=== PATIENT | male | born 1985 | race Caucasian/White ===

== ENCOUNTER → 2019-12-09 09:26 | Outpatient (BNVA) | payer OTHER, SELFPAY | PROVIDERS: Visit Provider Registered Nurse | DX: Z02.1 Encounter for pre-employment examination (principal) | CPT/HCPCS: 80305 ==

== ENCOUNTER 2019-12-18 10:00 | Emergency (ER) | payer OTHER, SELFPAY ==
[2019-12-18 10:03] VITALS: BP 136/93; PULSE 71; RESP 16; TEMP 36.7; O2SAT 100; BMI 22.8
--- NOTE | 2019-12-18 10:14 | ED_ITS ---
Entered by Carole Yan, acting as scribe for Andrew Adam DO Dec 18, 2019 10:00 HPI - Abdominal Pain General: Chief Complaint: Abdominal Pain Stated Complaint: LOWER ABD PAIN Time Seen by Provider: 12/18/19 10:19 Source: patient Mode of arrival: ambulatory Limitations: no limitations History of Present Illness: HPI narrative: 34 yo male presents with Right groin pain. pt states this started today. pt states movement makes this worse. pt is concerned that he has a hernia. pt denies any other symptoms at this time. MD elicited complaint: other (knot on R groin) Pertinent past history: none Onset (ago): day(s) (today) Pain Consistency: constant Location: Groin (right sided) Severity: moderate Quality: sharp Radiation: other (R testicle yesterday) Migration to: no migration Exacerbating factors: movement Relieving factors: nothing Associated Symptoms: Reports no associated symptoms; Denies bloating, chills, coffee ground emesis, constipation, diarrhea, dysuria, fever(s), hematochezia, hematemesis, melena, nausea and vomiting Review of Systems General: Reports: 10 or more systems reviewed and unremarkable except in HPI and below Const: Denies: fever, chills, body aches, change in appetite, fatigue or malaise ENMT: Denies: throat pain, ear pain, nasal discharge or nasal congestion Card: Denies: chest pain, edema, shortness of breath on exertion or shortness of breath when lying down Resp: Denies: shortness of breath, productive cough or non-productive cough GI: Denies: abdominal pain, nausea, vomiting, vomiting blood, coffee grounds in vomit, diarrhea, constipation, bloating, blood in stool or black tarry stool : Denies: flank pain, painful urination, urinary frequency or urinary urgency Skin/Breast: Denies: rash or itching PFSH ED PFSH: Social History Smoking and tobacco status: current every day smoker Physical Exam Const: COMMON NORMALS: no apparent distress GENERAL APPEARANCE: cooperative and comfortable ORIENTATION/CONSCIOUSNESS: Yes awake, Yes oriented to person, Yes oriented to place and Yes oriented to time HENMT: COMMON NORMALS: normocephalic, head/scalp atraumatic, hearing grossly normal bilaterally, external ears normal, EAC's normal, TM's normal bilaterally, nasal mucous membranes and turbinates normal, moist oral mucous membranes and oropharynx normal HEAD & SCALP: normocephalic and atraumatic NOSE: nasal mucous membranes and turbinates normal EXTERNAL EAR: Yes external ears normal EXTERNAL AUDITORY CANAL: EAC's normal TYMPANIC MEMBRANE: TM's normal bilaterally Eye: COMMON NORMALS: PERRL, EOMs intact bilaterally, conjunctivae normal and no scleral icterus CONJUNCTIVA: Yes conjunctivae normal PUPIL: Yes PERRL Neck/C-Spine: COMMON NORMALS: full ROM, no lymphadenopathy, supple and no JVD Resp: COMMON NORMALS: normal respiratory effort, no retractions, no use of accessory muscles and clear to auscultation bilaterally AUSCULTATION: clear to auscultation bilaterally Cardio: COMMON NORMALS: no JVD, regular rate, regular rhythm and no murmurs RATE: regular rate RHYTHM: regular rhythm GI: COMMON NORMALS: soft to palpation and no hepatosplenomegaly AUSCULTATION: Yes normoactive bowel sounds PALPATION: Yes soft, No tender, No guarding and Yes no hepatosplenomegaly : COMMON NORMALS: Yes no CVA tenderness, Yes external exam normal, Yes testes normal, Yes scrotum normal, Yes no scrotal swelling and Yes no hernias present BLADDER/KIDNEY EXAM: Yes no CVA tenderness MALE GROIN/PERINEUM EXAM: Yes hernia ( Loose external inguinal ring with no evidence of any abd) and Yes inguinal lymphadenopathy (Solitary subcentimeter nodule in the right inguinal region. Lymphadenopathy is superior) Back/Pelvis: COMMON NORMALS: no CVA tenderness Extremity: COMMON NORMALS: normal to inspection, normal capillary refill, no clubbing, cyanosis or edema, no calf tenderness and no pedal edema Neuro: SENSORIUM/ORIENTATION: Yes oriented to person, Yes oriented to place and Yes oriented to time Skin: NARRATIVE SKIN EXAM: Patient has a noninflamed pilonidal cyst is not fluctuant at the superior aspect of the gluteal cleft. There is no redness erythema no tenderness with palpation. There is some scarring appears it is previously drained. Chronic boggy thickening of this skin itself. Course ED course: Patient has no abnormalities on exam of the scrotum or testicle. The only other abnormality exam is documented above. Urine and white count are normal. This point discharge him home recommend ice heat as needed to the groin area rest. He could have a follow-up if the lymphadenopathy does not resolve. Probably more importance is the pilonidal cyst is not actively infected at this time and will take he needs to be on an antibiotic sounds like he drained it pretty much took care of it himself he does however need to see surgery will try to get him into see general surgery so he can get definitive care for it before it recurs. Vital Signs: Vital signs: Vital Signs Temperature 98.0 F 12/18/19 10:03 Pulse Rate 80 12/18/19 11:39 Respiratory Rate 17 12/18/19 11:39 Blood Pressure 126/89 12/18/19 11:39 Pulse Oximetry 99 12/18/19 11:39 MDM - Abdominal Pain Lab Data: Labs: Lab Results 12/18/19 12/18/19 12/18/19 Range/Units 10:19 10:19 10:25 WBC 9.4 (4.0-10.0) 10^3/ uL RBC 4.62 (4.1-5.3) 10^6/u L Hgb 15.4 (11.7-16.6) g/dL Hct 45.0 (42.0-52.0) % MCV 97.4 H (80-94) fL MCH 33.3 (28.0-34.0) pg MCHC 34.2 (30.0-36.0) g/dL RDW 11.9 L (12.1-15.1) % Plt Count 304 (130-400) 10^3/c mm MPV 9.1 (7.4-10.4) fL Neut % (Auto) 77.4 % Lymph % (Auto) 13.9 % Sawyer % (Auto) 6.5 % Eos % (Auto) 1.7 % Baso % (Auto) 0.3 % Neut # (Auto) 7.3 (1.8-7.7) 10^3/u L Lymph # (Auto) 1.3 (0.8-4.8) 10^3/u L Sawyer # (Auto) 0.6 (0.2-0.9) 10^3/u L Eos # (Auto) 0.2 (0.0-0.8) 10^3/u L Baso # (Auto) 0.0 (0.0-0.1) 10^3/u L Nucleated RBC % (a uto) 0 % Nucleated RBCs # 0.0 /100WBC Sodium 140 (136-145) mmol/L Potassium 4.4 (3.5-5.1) mmol/L Chloride 99 (98-107) mmol/L Carbon Dioxide 30 H (22-29) mmol/L Anion Gap 15.4 (5-19) BUN 9 (6-20) mg/dL Creatinine 0.9 (0.7-1.2) mg/dL GFR Calculation 96.0 (90-130) mL/min Glucose 128 H (65-115) mg/dL Calculated Osmolal ity 288 (285-295) mOsm/k g Calcium 10.3 (8.5-10.5) mg/dL Total Bilirubin 0.4 (0.15-1.2) mg/dL AST 23 (0-40) U/L ALT 20 (0-41) U/L Alkaline Phosphata se 83 (40-130) IU/L Total Protein 8.4 (6.6-8.7) g/dL Albumin 4.7 (3.5-5.2) g/dL Globulin 3.7 (1.3-4.6) g/dL Urine Color Yellow (Yellow) Urine Appearance Clear (CLEAR) Urine pH 7.0 (5-7) Ur Specific Gravit y 1.010 (1.005-1.030) Urine Protein Neg (Negative) Urine Glucose (UA) Norm (Normal) Urine Ketones Negative (Negative) Urine Blood Neg (Negative) Urine Nitrate Negative (Negative) Urine Bilirubin Neg (NEGATIVE) Urine Urobilinogen Norm (Negative) mg/dL Ur Leukocyte Margarita ase Negative (Negative) Discharge Plan Discharge Patient Disposition: Home, Self-Care Clinical Impression: Acute inguinal lymphadenitis, Pilonidal cyst without abscess Condition: Stable Patient Instructions: Pilonidal Disease Discharge Date/Time: 12/18/19 11:40 Coding Level of Care Code ED Certification And Selection Specialist for Chg Fwd Exam Comprehensive The documentation recorded by the Yuriy bashir Bridget Annette, accurately reflects the service I personally performed and the decisions made by Jair santacruz Curtis L, DO Dec 18, 2019 10:00
[2019-12-18 10:27] LABS: Basophils % 0.3 %; Eosinophils # 0.2 10^3/uL (0.0-0.8); Eosinophils % 1.7 %; Hemoglobin 15.4 g/dL (11.7-16.6); Lymphocytes # 1.3 10^3/uL (0.8-4.8); Lymphocytes % 13.9 %; Mean Corpuscular HGB Conc 34.2 g/dL (30.0-36.0); Mean Corpuscular Hemoglobin 33.3 pg (28.0-34.0); Mean Corpuscular Volume 97.4 fL (80-94); Mean Platelet Volume 9.1 fL (7.4-10.4); Monocytes # 0.6 10^3/uL (0.2-0.9); Monocytes % 6.5 %; Neutrophils # 7.3 10^3/uL (1.8-7.7); Neutrophils % 77.4 %; Nucleated Red Blood Cells % 0 %; Platelet Count 304 10^3/cmm (130-400); Red Blood Count 4.62 10^6/uL (4.1-5.3); Red Cell Distribution Width 11.9 % (12.1-15.1); White Blood Count 9.4 10^3/uL (4.0-10.0)
[2019-12-18 10:35] LABS: Add Urine Microscopic? NO
[2019-12-18 10:42] LABS: Alanine Aminotransferase 20 U/L (0-41); Albumin Level 4.7 g/dL (3.5-5.2); Alkaline Phosphatase 83 IU/L (40-130); Anion Gap 15.4 (5-19); Aspartate Amino Transferase 23 U/L (0-40); Blood Urea Nitrogen 9 mg/dL (6-20); Calcium 10.3 mg/dL (8.5-10.5); Carbon Dioxide 30 mmol/L (22-29); Chloride 99 mmol/L (98-107); Creatinine Clr Calc Pharmacy 110.5994; Globulin 3.7 g/dL (1.3-4.6); Glucose 128 mg/dL (65-115); Osmolality Calculated 288 mOsm/kg (285-295); Potassium 4.4 mmol/L (3.5-5.1); Sodium 140 mmol/L (136-145); Total Bilirubin 0.4 mg/dL (0.15-1.2); Total Protein 8.4 g/dL (6.6-8.7)
[2019-12-18 10:45] LABS: Bilirubin Urine Neg (NEGATIVE); Blood Urine Neg (Negative); Glucose Urine UA Norm (Normal); Ketones Urine Negative (Negative); Leukocyte Esterase Urine Negative (Negative); Nitrate Urine Negative (Negative); Protein Urine Neg (Negative); Urine Appearance Clear (CLEAR); Urine Color Yellow (Yellow); Urobilinogen Urine Norm (Negative)
[2019-12-18 11:01] VITALS: BP 134/89; PULSE 64; RESP 16; O2SAT 98
[2019-12-18 11:39] VITALS: BP 126/89; PULSE 80; RESP 17; O2SAT 99
== END 2019-12-18 11:40 | disposition home or self-care (01) ==
PROVIDERS: Physician Assistant; Emergency Provider Family Medicine
DX: L04.1 Acute lymphadenitis of trunk (principal); L05.91 Pilonidal cyst without abscess; F17.200 Nicotine dependence, unspecified, uncomplicated
CPT/HCPCS: 12345; 80053; 81003; 85025; 99282; A9270

== ENCOUNTER 2020-04-08 14:23 | Observation (INO) | payer SELFPAY ==
[2020-04-08] VITALS (17 sets, daily range): BP systolic 119–169; BP diastolic 77–116; PULSE 67–114; RESP 10–18; TEMP 36.8–37.4; O2SAT 95–100; BMI 22.1
--- NOTE | 2020-04-08 14:33 | ED_ITS ---
HPI - Animal Bite General: Chief Complaint: Animal Bite Stated Complaint: Dog bite Time Seen by Provider: 04/08/20 14:24 History of Present Illness: HPI narrative: 34-year-old male presents emergency room after getting involved in a dog fight. He stopped his dog from fighting with another dog and hit his dog clamped onto his left forearm he has very large open lacerations with exposed muscle belly and tendon on his right forearm. He denies any other injuries. His dog is not up-to-date on his rabies shots. The patient is unsure of his last tetanus shot as well. MD complaint: animal bite Associated symptoms: Deny chills or fever(s) Review of Systems Const: Denies: fever(s), chills, body aches, change in appetite, fatigue or malaise ENMT: Denies: throat pain, ear or mastoid pain, nasal discharge or nasal con gestion Card: Denies: chest pain, edema, dyspnea on exertion or orthopnea Resp: Denies: dyspnea, productive cough or non-productive cough GI: Denies: abdominal pain, nausea, vomiting, hematemesis, coffee ground emesis, diarrhea, constipation, bloating, hematochezia or melena : Denies: flank pain, dysuria, urinary frequency or urinary urgency Skin/Breast: Denies: rash or pruritus PFSH ED PFSH: Social History Smoking and tobacco status: current every day smoker Physical Exam 2 Const: COMMON NORMALS: no acute distress GENERAL APPEARANCE: cooperative and comfortable ORIENTATION/CONSCIOUSNESS: Yes awake, Yes oriented to person, Yes oriented to place and Yes oriented to time HENMT: COMMON NORMALS: normocephalic, atraumatic, hearing grossly normal bilaterally, external ears normal, EAC's normal, TM's normal bilaterally, Normal nasal mucous membranes and turbinates present, moist oral mucous membranes and oropharynx normal HEAD & SCALP: normocephalic and atraumatic NOSE: Normal nasal mucous membranes and turbinates present EXTERNAL EAR: Yes external ears normal EXTERNAL AUDITORY CANAL: EAC's normal TYMPANIC MEMBRANE: TM's normal bilaterally Eye: COMMON NORMALS: Equal, round and reactive pupils present, EOMs intact bilaterally, conjunctivae normal and no scleral icterus CONJUNCTIVA: Yes conjunctivae normal PUPIL: Yes Equal, round and reactive pupils present Neck/C-Spine: COMMON NORMALS: full ROM, no lymphadenopathy, supple and no JVD Lymph: LYMPHATIC: no lymphadenopathy noted and no lymphedema noted Resp: COMMON NORMALS: normal respiratory effort, No retractions, No use of accessory muscles and clear to auscultation bilaterally AUSCULTATION: clear to auscultation bilaterally Cardio: COMMON NORMALS: no JVD, regular rate, regular rhythm and No murmurs present (Cardio) RATE: regular rate RHYTHM: regular rhythm GI: COMMON NORMALS: Soft to palpation and No hepatosplenomegaly present AUSCULTATION: Yes normoactive bowel sounds PALPATION: Yes Soft to palpation, No Tenderness to palpation present (GI), No Guarding due to palpation present (GI) and Yes No hepatosplenomegaly present Extremity: NARRATIVE EXTREMITY EXAM: Or lacerations of the epitrochlear with exposure of muscle belly and tendons. These are more than can be managed and cleaned appropriately in the emergency room. Patient is able to flex and extend the fingers. Sensation somewhat diminished. There is no active bleeding. Wounds were cleaned and then dressed with a wet dressing. Neuro: SENSORIUM/ORIENTATION: Yes oriented to person, Yes oriented to place and Yes oriented to time Skin: COMMON NORMALS: no rashes or lesions noted GENERAL SKIN EXAM: no rashes or lesions noted Course Vital Signs: Vital signs: Vital Signs Temperature 98.2 F 04/08/20 14:24 Pulse Rate 70 04/08/20 16:14 Respiratory Rate 17 04/08/20 16:14 Blood Pressure 152/113 04/08/20 16:14 Pulse Oximetry 95 04/08/20 16:14 MDM - Animal Bite MDM Narrative: Medical decision making narrative: Discussed Dr. Briseno will take patient to surgery later later to clean and repair these. Did recommend to the patient that he did monitor the dog or euthanize his dog and submit for rabies testing dispersal pad you plan is observe the dog they do have it he will need to observe for at least 10 days. Neither he nor the dog have been immunized he his immunizations are updated in the emergency room. Lab Data: Labs: Lab Results 04/08/20 04/08/20 Range/Units 14:32 14:32 WBC 10.4 H (4.0-10.0) 10^3/ uL RBC 4.93 (4.1-5.3) 10^6/u L Hgb 16.4 (11.7-16.6) g/dL Hct 47.1 (42.0-52.0) % MCV 95.5 H (80-94) fL MCH 33.3 (28.0-34.0) pg MCHC 34.8 (30.0-36.0) g/dL RDW 12.7 (12.1-15.1) % Plt Count 337 (130-400) 10^3/c mm MPV 9.4 (7.4-10.4) fL Neut % (Auto) 55.2 % Lymph % (Auto) 33.7 % Gaines % (Auto) 8.0 % Eos % (Auto) 2.2 % Baso % (Auto) 0.6 % Neut # (Auto) 5.7 (1.8-7.7) 10^3/u L Lymph # (Auto) 3.5 (0.8-4.8) 10^3/u L [place]aines # (Auto) 0.8 (0.2-0.9) 10^3/u L Eos # (Auto) 0.2 (0.0-0.8) 10^3/u L Baso # (Auto) 0.1 (0.0-0.1) 10^3/u L Nucleated RBC % (a uto) 0 % Nucleated RBCs # 0.0 /100WBC Sodium 139 (136-145) mmol/L Potassium 3.5 (3.5-5.1) mmol/L Chloride 101 (98-107) mmol/L Carbon Dioxide 22 (22-29) mmol/L Anion Gap 19.5 H (5-19) BUN 11 (6-20) mg/dL Creatinine 1.0 (0.7-1.2) mg/dL GFR Calculation 85.0 L (90-130) mL/min Glucose 104 (65-115) mg/dL Calculated Osmolal ity 284 L (285-295) mOsm/k g Calcium 9.9 (8.5-10.5) mg/dL Discharge Plan Discharge Patient Disposition: Admitted As Inpatient Admit Provider: Vivek Briseno Coding Level of Care Code ED Nursing Clerk for Fabricio De Santiago
[2020-04-08] MEDS: morphine 4 mg/mL SDV 1 mL 6 MG IVP (14:39)
[2020-04-08] MEDS: tetanus-dipt-pertussis 0.5 mL SDV IM (14:39)
[2020-04-08] MEDS: ondansetron 2 mg/ML SDV 2 mL 4 MG IVP (14:39)
[2020-04-08] MEDS: ceFAZolin 1,000 MG in sodium chloride 0.9% (plus) 50 ML 100 MG IV (14:40)
[2020-04-08 14:46] LABS: Basophils # 0.1 10^3/uL (0.0-0.1); Basophils % 0.6 %; Eosinophils # 0.2 10^3/uL (0.0-0.8); Eosinophils % 2.2 %; Hematocrit 47.1 % (42.0-52.0); Hemoglobin 16.4 g/dL (11.7-16.6); Lymphocytes # 3.5 10^3/uL (0.8-4.8); Lymphocytes % 33.7 %; Mean Corpuscular HGB Conc 34.8 g/dL (30.0-36.0); Mean Corpuscular Hemoglobin 33.3 pg (28.0-34.0); Mean Corpuscular Volume 95.5 fL (80-94); Mean Platelet Volume 9.4 fL (7.4-10.4); Monocytes # 0.8 10^3/uL (0.2-0.9); Neutrophils # 5.7 10^3/uL (1.8-7.7); Neutrophils % 55.2 %; Nucleated Red Blood Cells % 0 %; Platelet Count 337 10^3/cmm (130-400); Red Blood Count 4.93 10^6/uL (4.1-5.3); Red Cell Distribution Width 12.7 % (12.1-15.1); White Blood Count 10.4 10^3/uL (4.0-10.0)
[2020-04-08 15:06] LABS: Anion Gap 19.5 (5-19); Blood Urea Nitrogen 11 mg/dL (6-20); Calcium 9.9 mg/dL (8.5-10.5); Carbon Dioxide 22 mmol/L (22-29); Chloride 101 mmol/L (98-107); Glucose 104 mg/dL (65-115); Osmolality Calculated 284 mOsm/kg (285-295); Potassium 3.5 mmol/L (3.5-5.1); Sodium 139 mmol/L (136-145)
[2020-04-08] MEDS: morphine 4 mg/mL SDV 1 mL 2 MG IVP ×2 (15:47→17:04)
--- NOTE | 2020-04-08 17:58 | PC.NURSE ---
Patient to surgery at this time. This technical document writer was unaware that patient was going to surgery tonight it was given in report that patient would be going in the morning
--- NOTE | 2020-04-08 18:06 | PM.HP ---
Providers/Chief Complaint Admitting Physician: Vivek Briseno MD Chief Complaint: Dog bite History of Present Illness Kevin Mancilla is a 34 year old male who was drinking this morning when he attempted to break up a dog fight between his 2 pit bulls. He sustained lacerations to his anterior and posterior elbow and was seen in our emergency room today. Dr. Shannon felt the wounds were deep with tendon involvement and has asked orthopedics to see the patient to evaluate him for irrigation and debridement and repair of involve the deep structures. The patient denies any previous upper extremity problems. He denies any numbness in his right upper extremity Review of Systems General: Reports: 10 or more systems reviewed and unremarkable except in HPI and below Medications/Allergies Home Medications Medication Instructions Recorded Confirmed Last Taken Type No Known Home Medications 04/08/20 04/08/20 Unknown History Allergies Allergy/AdvReac Type Severity Reaction Status Date / Time acetaminophen Allergy ALGY-Hives Verified 04/08/20 15:04 PFSH Acute PFSH: Social History Smoking and tobacco status: current every day smoker Vitals/I&O/Wt Last Vital Signs Temp 98.6 F 04/08/20 16:00 Pulse 70 04/08/20 16:14 Resp 18 04/08/20 17:04 BP 152/113 04/08/20 16:14 Pulse Ox 100 04/08/20 17:04 04/08/20 04/08/20 04/08/20 06:59 14:59 22:59 Intake Total 50 / 50 Balance 50 / 50 Weight last 48 hrs Weight 150 lb Physical Exam Narrative: EXAM NARRATIVE: HEAD: Normocephalic/atraumatic. NECK: Soft supple nontender. HEART: Normal heart sounds, regular rhythm. CHEST: Clear to auscultation. ABDOMEN: Soft nontender nondistended. The patient's right upper extremity has a dressing applied across the elbow which is not removed. He will flex and extend his ulnar 4 fingers as well as extend oppose and abduct his digits. Refuses to move his wrist due to pain. He refuses to move his elbow due to pain. No sensory deficits of the right forearm or hand that I can appreciate. He has a strong right radial pulse. Data : 04/08/20 14:32 04/08/20 14:32 A&P Assessment and plan (1) Open wound of right elbow: The patient has complicated wounds of his right elbow with I described deep tendon and muscle involvement by the emergency room. I discussed options with the patient. I think our best option would be surgical irrigation and debridement. We can explore the forearm and repair pertinent structures. I do not see evidence of the vascular or neurological injury told her there could be reach peak trips back to the operating room I discussed risk of infection. Lia the possibility of continued pain or nerve injury. He understands and agrees to proceed. Status: Acute Attestations Medical Necessity Statement*: Patient will be discharged home today Coding Level of Care Code Acute Chain Hoist Operator for [facility] Anyi Diagnoses Open wound of right elbow S51.001A
--- NOTE | 2020-04-08 18:07 | ANES.PREANE2 ---
Pre-Anesthetic Assessment Pre-Anesthetic Assessment: Height/Weight: Height 1.75 m Weight 68.039 kg Temp Pulse Resp BP Pulse Ox 98.6 F 70 18 152/113 100 04/08/20 16:00 04/08/20 16:14 04/08/20 17:04 04/08/20 16:14 04/08/20 17:04 Preop Diagnosis: Open wounds right arm Proposed Procedure: Operation Date: 04/08/20 18:30 Proposed Procedures p Debridement Upper Extremity, Right Tendon Repair(Right) - Vivek Briseno MD Was Beta Nader taken within 24 hours: N/A Last intake: 0900 ate breakfast Social: Social History: Alcohol Comment: marijuana daily Exam: Pre-Anes Outpt Exam: alert, oriented x 3, clear to auscultation bilaterally and regular rate & rhythm Airway: Submandibular: WNL Cervical ROM: WNL MP: 1 Dentition: Full History/ROS: No significant history except as noted and No significant complaints Pulmonary: Pulmonary: None reported CV/HEM: CV/HEM: None reported : : None reported Hepatic: Hepatic: None reported GI: GI: GERD Metabolic: Metabolic: None reported Musc/skel: Musc/skel: None reported Neuropsych: Neuropsych: OJEDA Anesthetic Plan: ASA status: 2E Anesthesia: General Meds/Allergies Current Medications: Current Medications Generic Name Dose Route Start Last Admin Trade Name Freq PRN Reason Stop Dose Admin Morphine Sulfate 2 mg 04/08/20 16:51 04/08/20 17:04 Morphine IVP 2 mg Q4H PRN Administration SEVERE PAIN PFSH Anesthesia PFSH: Social History Smoking and tobacco status: current every day smoker Data Anesthesia CBC & Chem 7: 04/08/20 14:32 04/08/20 14:32 Other Labs: Laboratory Results - last 48 hr 04/08/20 04/08/20 14:32 14:32 WBC 10.4 H RBC 4.93 Hgb 16.4 Hct 47.1 MCV 95.5 H MCH 33.3 MCHC 34.8 RDW 12.7 Plt Count 337 MPV 9.4 Neut % (Auto) 55.2 Lymph % (Auto) 33.7 Brooke % (Auto) 8.0 Eos % (Auto) 2.2 Baso % (Auto) 0.6 Neut # (Auto) 5.7 Lymph # (Auto) 3.5 Brooke # (Auto) 0.8 Eos # (Auto) 0.2 Baso # (Auto) 0.1 Nucleated RBC % (auto) 0 Nucleated RBCs # 0.0 Sodium 139 Potassium 3.5 Chloride 101 Carbon Dioxide 22 Anion Gap 19.5 H BUN 11 Creatinine 1.0 GFR Calculation 85.0 L Glucose 104 Calculated Osmolality 284 L Calcium 9.9 Cardiac Studies: No Data to Display
--- NOTE | 2020-04-08 19:06 | P.OP_ITS ---
Operative Report Date of procedure: April 08, 2020 Pre-op Diagnosis: Complex Open wounds right arm Post-op diagnosis: same Post-op Findings: Open wounds right arm x3 1) 8cm long transverse wound over proximal ulnar forearm with involvement manzano perficial flexor pronator muscle belly 2 3 cm long oblique incision dorsal radial proximal forearm with involvement superficial extensor digitorum communis muscle belly 3) 6 cm radial incision just above forearm with superficial involvement brachoradialis muscle belly Procedure Done: Irrigation and debridement open wounds right forearm with repair superficial flexor pronator muscle belly, extensor digitorum communis and brachial radialis muscle bellies Pathology: none sent Surgeon: Vivek Briseno Anesthesia: General Estimated blood loss (mL): 40 Tourniquet time (min): 12 Findings: The patient had an 8cm transverse incision over his proximal ulnar forearm 6 cm in length with involvement down deep into the flexor pronator muscle belly just distal to the medial epicondyle. He had a 6cm transverse ulceration over the lateral arm just proximal to the elbow extending down into the superficial brachial radialis tendon. He had a 3 cm long laceration over the dorsal common extensor origin with involvement into the superficial common extensor tendons. No gross contamination or foreign bodies were noted. Condition: stable Disposition: PACU Procedure: The patient was taken to the operating room and given a general anesthesia. His right upper extremity was prepped and draped in the usual fashion with a tourniquet on the right thigh. Initial attention was paid to the 8 cmproximal ulnar forearm incision. The wound was explored with involvement of the flexor pronator muscle belly identified. No significant burden of devitalized or material or foreign bodies were noted. The wound was then irrigated with approximately a liter of saline. 2-0 Vicryl sutures were used to reapproximate the fascia over the flexor pronator musculature as best possible. Subcutaneous tissues were closed with 2-0 Vicryl and the skin was closed loosely with skin buddy. Attention was then paid to the 3cm dorsal forearm laceration. The wound was extended a centimeter in each direction access to the exposed muscle bellies. Tourniquet was deflated at this time to aid in hemostasis. The wound again was explored without foreign material or contamination. The smaller wound was irrigated with 500 cc of saline. The common extensor muscle belly was reapproximated 2-0 Vicryl. The subcutaneous tissues were closed with 2-0 Vicryl. And the skin was closed with skin buddy. Final attention was paid to a 6 cm long incision just proximal to the radial elbow. Edges of the brachial radialis tendon were identified. The wound was irrigated with approximately a liter of saline. The brachioradialis muscle belly was approximate with 2-0 Vicryl. Deep tissues were closed with 2-0 Vicry l. The skin was closed with skin buddy. The tourniquet was deflated. Wounds were covered with Xeroflo gauze, 4 x 4's, Kerlix, and a compressive Judah wrap. The patient was extubated taken recovery room in stable condition.
--- NOTE | 2020-04-08 19:21 | SUR.PHASEI ---
1915-ORAL AIRWAY OUT, SIMPLE MASK AT 10LPM, SAT 100%
--- NOTE | 2020-04-08 19:29 | PM.DCS ---
Discharge Providers Date of Admission: 04/08/20 14:38 Date of Discharge: April 08, 2020 Attending Provider at Admission: Vivek Briseno MD Attending Provider at Discharge: Vivek Briseno MD Diagnoses at Discharge Discharge Diagnosis (1) Open wound of right elbow: Status: Acute Reason for Visit Reason for Visit: Dog bite Hospital Course Hospital Course: Patient was admitted for surgical irrigation debridement and tendon repairs of his right arm until n.p.o. status allowed surgery. He tolerated the procedure well was discharged home after any Physical Exam Narrative: EXAM NARRATIVE: The patient had open wounds around the right elbow measuring 8 cm, 3 cm, and 2 cm in length. There are no distal neurovascular deficits I can appreciate Discharge Data Data Completed and Pending: Labs from last 24 hours 04/08/20 04/08/20 14:32 14:32 WBC 10.4 H RBC 4.93 Hgb 16.4 Hct 47.1 MCV 95.5 H MCH 33.3 MCHC 34.8 RDW 12.7 Plt Count 337 MPV 9.4 Neut % (Auto) 55.2 Lymph % (Auto) 33.7 [place] % (Auto) 8.0 Eos % (Auto) 2.2 Baso % (Auto) 0.6 Neut # (Auto) 5.7 Lymph # (Auto) 3.5 [place] # (Auto) 0.8 Eos # (Auto) 0.2 Baso # (Auto) 0.1 Nucleated RBC % (a uto) 0 Nucleated RBCs # 0.0 Sodium 139 Potassium 3.5 Chloride 101 Carbon Dioxide 22 Anion Gap 19.5 H BUN 11 Creatinine 1.0 GFR Calculation 85.0 L Glucose 104 Calculated Osmolal ity 284 L Calcium 9.9 Vitals: Last Vital Signs Temp 99.4 F 04/08/20 19:15 Pulse 105 H 04/08/20 19:25 Resp 16 04/08/20 19:25 BP 161/101 04/08/20 19:25 Pulse Ox 100 04/08/20 19:25 Discharge Plan Discharge Patient Disposition: Home, Self-Care Condition: Stable Prescriptions: New oxycodone 5 mg capsule 5 mg PO Q4H Qty: 30 RF: 0 Augmentin 500-125 mg tablet 1 tab PO Q8H 10 Days Qty: 30 RF: 0 No Action No Known Home Medications RF: 0 Discharge Orders: Discharge Order (Routine); Ordered 04/08/20 Ordered By: Vivek Briseno Referrals: Vivek Briseno MD [Physician] - 7-10 days Discharge Diet: Advance as tolerated Discharge Activity: Limit activity as instructed Activity Restrictions/Additional Instructions: The patient will leave his dressing in place and remain in his sling at all times. He may take anti-inflammatories for mild pain and oxycodone for severe pain. He should contact the hospital if he has any significant increased pain fevers or foul drainage Discharge Attestations Time Spent in Discharge Care*: other Quality Metrics Clinical Quality Measures During this hospital stay, did patient experience: None Coding Level of Care Code Acute Reducing Machine Operator for g Fwd Diagnoses Open wound of right elbow S51.001A
== END 2020-04-08 22:00 | disposition home or self-care (01) ==
LOC: ER 15:18 → MEDSURG 15:27
PROVIDERS: Family Medicine; Admitting Provider Orthopaedic Surgery; Visit Provider Orthopaedic Surgery
PROC: (CPT 12034; principal; 2020-04-08 18:20)
PROC: (CPT 24341; 2020-04-08 18:20)
DX: S51.801A Unspecified open wound of right forearm, initial encounter (principal); W54.0XXA Bitten by dog, initial encounter; F17.210 Nicotine dependence, cigarettes, uncomplicated
CPT/HCPCS: 12034; 13121; 13122; 12345; 80048; 85025; 90715; 96365; 96375; 99283; 99285; G0378; J0330; J0690; J1100; J1885; J2001; J2250; J2270; J2405; J2704; J2765; J3010; J3490

== ENCOUNTER 2025-04-01 06:01 | Day surgery (SDC) | payer OTHER, SELFPAY ==
[2025-04-01] VITALS (10 sets, daily range): BP systolic 118–141; BP diastolic 75–88; PULSE 56–76; RESP 16–18; TEMP 36.2–36.6; O2SAT 97–99; BMI 23.6
[2025-04-01] MEDS: sodium chloride 0.9% 1,000 ML 30 ML IV (06:27)
--- NOTE | 2025-04-01 06:37 | P.ANESASSM_ITS ---
Pre-Anesthetic Assessment Height/Weight: Height 1.75 m Weight 72.575 kg Temp Pulse Resp BP Pulse Ox O2 Del Method 97.4 F L 56 L 18 123/78 99 Room Air 04/01/25 06:17 04/01/25 06:17 04/01/25 06:17 04/01/25 06:17 04/01/25 06:17 04/01/25 06:17 Operation Date: 04/01/25 07:00 Proposed Procedures p Excision of Pilonidal Cyst(Not Applicable) - Junior Heaton MD Familial anesthetic complications: None Was Beta Nader taken within 24 hours: N/A Was Clonidine taken within 24 hours: N/A Last intake: Intake Last Liquid Date 03/31/25 Last Liquid Time 19:30 Last Solid Date 03/31/25 Last Solid Time 19:30 Social No alcohol and No tobacco marijuana Exam alert, oriented x 3, clear to auscultation bilaterally and regular rate & rhythm Airway Mallampati: Class III Dentition: other (missing) Hepatic Hep C Anesthetic Plan ASA status: 3 Anesthesia: General Risk of > 500 ml blood loss (7ml/kg in children): No Medications/Allergies Home Medications ?Medication ?Instructions ?Recorded ?Confirmed ?Last Taken ?Type amoxicillin 875 mg-potassium 1 tab PO BID 7 days #14 t abs 03/23/25 04/01/25 03/31/25 Rx clavulanate 125 mg tablet Allergies Allergy/AdvReac Type Severity Reaction Status Date / Time pseudoephedrine Allergy ALGY-Rash Verified 04/01/25 06:15 Current Medications Generic Name Dose Route Start Last Admin Trade Name Carrie PRN Reason Stop Dose Admin Sodium Chloride 1,000 mls @ 30 mls/hr 04/01/25 06:15 04/01/25 06:27 Sodium Chloride 0.9% IV 04/02/25 06:14 30 mls/hr .Q24H JOE Administration PFSH Anesthesia Medical History Marijuana dependence Nicotine dependence Abscess of sacrum Hepatitis C Prosthetic eye globe Surgical History (Updated 03/23/25 @ 07:55 by WENDY Mar) H/O wrist surgery H/O removal of cyst Family History Father No problems noted. Mother No problems noted. Social History Smoking and tobacco/nicotine status: current every day tobacco/nicotine user Quit status (tobacco/nicotine): not considering quitting Alcohol intake: current Alcohol intake frequency: holidays/special occasions only Alcohol type: beer Substance/Drug Use: current Substance/Drug use frequency: daily
--- NOTE | 2025-04-01 06:50 | P.HPUD_ITS ---
Surgery/Procedure H&P Update DATE OF PROCEDURE: April 01, 2025 DATE H&P PERFORMED: 03/23/25 H&P UPDATE INFORMATION: I have reviewed H&P completed within last 30 days, I have examined patient prior to procedure, No changes to prior documentation, H&P is in [facility] EMR on date indicated and Risks and benefits of the procedure reviewed PLANNED PROCEDURE: Operation Date: 04/01/25 07:00 Proposed Procedures p Excision of Pilonidal Cyst(Not Applicable) - Junior Heaton MD
[2025-04-01] MEDS: ceFAZolin 2,000 mg SDV 2000 MG IVP (07:00)
[2025-04-01] MEDS: lidocaine-epi 1% 20 mL INJ INJECTION (07:26)
[2025-04-01] MEDS: BUPivacaine 0.25% INJ 30 mL INJECTION (07:26)
[2025-04-01] MEDS: neomycin-poly-bacitracin oint 28 gm 1 APPLIC TOPICAL (08:17)
--- NOTE | 2025-04-01 08:26 | P.OP_ITS ---
Operative Report Date of procedure: April 01, 2025 Pre-op diagnosis: Pilonidal cyst Post-op diagnosis: Pilonidal cyst and sinus Post-op findings: There was a 2 x 1 cm pilonidal cyst to the right of the midline of the upper portion of the magda cleft. There were 2 small sinuses about 6 cm apart from the cyst Procedure done: Excision of pilonidal cyst and sinus Specimens removed/disposition: Pilonidal cyst and sinus Surgeon: Junior Heaton MD Manager Mechanical Maintenance: [facility] Estimated blood loss: 5 Complications: none Brief History: This is a 39-year-old male with history of pilonidal cyst and sinus who presented to my office for evaluation. We discussed recent benefits decided to proceed to the OR for excision Procedure: Patient was brought into the OR, general anesthesia was given. She was placed into a prone position. The lower back was prepped and draped in the usual sterile fashion. A timeout was conducted. Local anesthesia was infiltrated around the cyst. I then marked the skin with a skin marker making careful consideration of including the cyst as well as the sinus tract in the upper portion of the cleft total length of incision was going to be about 11 cm. I then proceeded to make a elliptical incision off the midline including the sinus and the cyst. The incision was deepened into the subcutaneous tissue I proceeded to circumferentially dissect the pilonidal cyst and the sinus tracking down all the way down to the skin. The incision was carried down all the way down to the presacral fascia and the specimen was excised. Hemostasis was achieved. No residual pathologic tissue was detected. I then proceeded to created flaps on the left and right of the wound to allow for closure. I did this with electrocautery creating a plane in the subcutaneous fat. The wound was irrigated. Additional local anesthesia was infiltrated. I then proceeded to close the wound in layers using #1 Vicryl for the deep subcutaneous tissue, I did incorporate the presacral fascia in this closure to prevent space. I then used #3-0 Vicryl for the superficial subcutaneous tissue and the skin was closed with #3-0 nylon vertical mattress sutures. A sterile dressing was applied. At the end of the procedure all counts were correct, the patient tolerated well the procedure was transferred to the PACU in stable condition.
[2025-04-01] MEDS: oxyCODONE 5 mg IR Tab/Cap PO (10:01)
--- NOTE | 2025-04-01 10:10 | ANE.PACU2 ---
Inpatient post-anesthesia follow up: Airway intact: Yes Vital signs: Temperature 97.9 F Pulse Rate 61 Respiratory Rate 16 Blood Pressure 129/82 Pulse Oximetry 99 Oxygen Delivery Me thod Room Air Oxygen Flow Rate Fraction of Inspir ed Oxygen Hydration adequate: Yes Nausea and vomiting: No Pain level: 1 Mental status: Baseline
== END 2025-04-01 10:10 | disposition home or self-care (01) ==
PROVIDERS: PCP Family Medicine Adult Medicine; Visit Provider Surgery
PROC: (CPT 11770; principal; 2025-04-01 07:00)
DX: L05.01 Pilonidal cyst with abscess (principal); F17.200 Nicotine dependence, unspecified, uncomplicated; F12.90 Cannabis use, unspecified, uncomplicated
CPT/HCPCS: 11770; 88304; J0690; J1100; J2250; J2405; J2704; J3010; J3490; J7030; J9999